=== PATIENT | female | born 1970 | race Caucasian/White ===

== ENCOUNTER 2017-01-23 10:36 | Emergency (ER) | payer BC ==
[2017-01-23] MEDS: NS 0.9% 1000 ML* 2,000 ML IV ONE (11:52)
[2017-01-23 12:07] LABS: ABS Basophils 0.1 10^3/ul (0-0.2); ABS Eosinophils 0.1 10^3/ul (0-0.6); ABS Lymphocytes 1.5 10^3/ul (1.0-4.8); ABS Monocytes 0.6 10^3/ul (0-0.8); ABS Neutrophils 6.4 10^3/ul (1.5-7.7); ABS Nucleated RBC 0 10^3/ul; Eosinophil % 1.1 % (0-6); Hematocrit 36 % (35-47); Hemoglobin 11.4 g/dl (12.0-16.0); Lymphocyte % 17.7 % (25-47); Mean Corpuscular HGB Conc 32 g/dl (31-36); Mean Corpuscular Hemoglobin 24 pg (27-31); Mean Corpuscular Volume 74 fL (80-97); Mean Platelet Volume 9 um3 (7.4-10.4); Nucleated Red Blood Cells % 0; Platelet Count 264 10^3/ul (150-450); Red Cell Distribution Width 16 % (10.5-15); White Blood Count 8.7 10^3/ul (3.5-10.8)
[2017-01-23 12:19] LABS: EGFR Non-African American 85.5 (>60)
[2017-01-23 12:22] LABS: INR 0.94 (0.77-1.02)
[2017-01-23 12:25] LABS: Urine Appearance Clear; Urine Blood 3+ (Negative); Urine Color Yellow; Urine Ketones Negative (Negative); Urine Protein 1+(30 mg/dL) (Negative); Urine Specific Gravity 1.016 (1.010-1.030); Urine Urobilinogen Negative (Negative)
[2017-01-23] MEDS ORDERED: NS 0.9% 1000 ML* 1,000 ML IV SCH (13:30)
--- NOTE | 2017-01-23 15:31 | RAD ---
INDICATION: Dysfunctional uterine bleeding COMPARISON: None TECHNIQUE: Longitudinal and transverse transvaginal scans of the pelvis were obtained. FINDINGS: Uterus: The uterus is mildly enlarged measuring 10.3 x 6.6 x 6.3 cm. There is a posterior body fibroid measuring 1.5 x 1.9 x 1.3 cm. Endometrial thickness: The endometrial thickness is measured at 1.2 cm. The endometrium is heterogeneous. Free fluid: There is no significant free fluid . Ovaries: The ovaries are normal in size. The right ovary measures 3.9 x 3.2 x 3.6 cm. The left ovary measures 2.2 x 1.9 x 1.3 cm. There is a mildly complex right ovarian cyst measuring 2.9 x 2.8 x 3.0 cm. Doppler interrogation demonstrates flow to each ovary. Other: None IMPRESSION: 1. Enlarged fibroid uterus. 2. Thickened and heterogeneous endometrium. Suggest follow-up in 2-3 menstrual cycles. 3. 3 cm mildly complex right ovarian cyst. This cyst can be reevaluated on the short-term follow-up exam.
[2017-01-23] MEDS ORDERED: CONJUGATED ESTROGENS 25 MG INJ ONE (16:00)
[2017-01-23] MEDS ORDERED: Sterile Water for Inj* 10 ML ONE (16:17)
[2017-01-23 16:55] VITALS: BP 107/65
--- NOTE | 2017-02-11 17:38 | ED ---
Luzma Light Gabriel, scribed for Simon Sands MD on 01/23/17 at 1216 . GI/ HPI - HPI Summary HPI Summary: This patient is a 46 year old F presenting to [facility] accompanied by with a chief complaint of vaginal bleeding since last night. Patient reports cramping and light headedness on standing. Patient denies hot flashes. Pt states that she has never had bleeding like this previously and that she is producing large clots of blood. She also reports some irregular spotting throughout the month although currently it is time for her normal menstrual period. - History of Current Complaint Chief Complaint: EDVaginalBleeding Stated Complaint: HEAVY BLEEDING Hx Obtained From: Patient Onset/Duration: Started Days Ago - 1, Still Present Timing: Constant Severity: Mild Current Severity: Mild Vaginal Bleeding Description: Clots Pain Intensity: 0 Associated Signs and Symptoms: Positive: Negative - hot flashes, Abdominal Pain - cramping Alleviating Factor(s): Nothing - Allergy/Home Medications Allergies/Adverse Reactions: Allergies Allergy/AdvReac Type Severity Reaction Status Date / Time No Known Allergies Allergy Verified 01/23/17 11:52 PMH/Surg Hx/FS Hx/Imm Hx Previously Healthy: Yes Endocrine/Hematology History: Denies: Hx Diabetes Cardiovascular History: Denies: Hx Atrial Fibrillation, Hx Coronary Artery Disease Respiratory History: Denies: Hx Asthma Musculoskeletal History: Denies: Hx Arthritis Opthamlomology History: Denies: Hx Cataracts EENT History: Denies: Hx Deafness Neurological History: Denies: Hx CVA, Hx Dementia, Hx Migraine Psychiatric History: Denies: Hx Anxiety - Immunization History Date of Tetanus Vaccine: UTD Date of Influenza Vaccine: NO Infectious Disease History: No Infectious Disease History: Denies: Traveled Outside the [place] in Last 30 Days - Family History Known Family History: Positive: Hypertension, Diabetes - Social History Lives: With Family Alcohol Use: None Substance Use Type: Reports: None Smoking Status (MU): Former Smoker Review of Systems Constitutional: Negative - hot flashes Positive: Abdominal Pain - cramping Positive: other - increased vaginal bleeding Neurological: Other - light headedness All Other Systems Reviewed And Are Negative: Yes Physical Exam - Summary Physical Exam Summary: Appearance: Well-appearing, Well-nourished Skin: Warm, Dry, No rash Eyes: Normal, PERRL, EOMI, sclera anicteric ENT: Normal Neck: Supple, nontender Respiratory: Clear to auscultation Cardiovascular: S1, S2, no murmur, no rub, no gallop Abdomen: Soft, nontender, no organomegaly Bowel sounds: Present Musculoskeletal: Normal, Strength/ROM Intact, no edema, pulses symmetrical Neurological: Normal, A&Ox3, cranial nerves II-XII WNL, follows commands, gait not tested, sensation intact to pin and light touch Psychiatric: affect normal, behavior appropriate, dressed appropriately, judgment intact Triage Information Reviewed: Yes Vital Signs On Initial Exam: Initial Vitals Temp Pulse Resp BP Pulse Ox 98.9 F 120 16 138/78 98 01/23/17 10:38 01/23/17 10:38 01/23/17 10:38 01/23/17 10:38 01/23/17 10:38 Vital Signs Reviewed: Yes - Lien Coma Scale Coma Scale Total: 15 Diagnostics - Vital Signs Vital Signs Temp Pulse Resp BP Pulse Ox 01/23/17 11:33 120 112/89 01/23/17 11:27 100 01/23/17 10:38 98.9 F 120 16 138/78 98 - Laboratory Lab Results: Lab Results 01/23/17 Range/Units 11:50 WBC 8.7 (3.5-10.8) 10^3/ul RBC 4.80 (4.0-5.4) 10^6/ul Hgb 11.4 L (12.0-16.0) g/dl Hct 36 (35-47) % MCV 74 L (80-97) fL MCH 24 L (27-31) pg MCHC 32 (31-36) g/dl RDW 16 H (10.5-15) % Plt Count 264 (150-450) 10^3/ul MPV 9 (7.4-10.4) um3 Neut % (Auto) 73.2 (38-83) % Lymph % (Auto) 17.7 L (25-47) % Randall % (Auto) 7.3 (1-9) % Eos % (Auto) 1.1 (0-6) % Baso % (Auto) 0.7 (0-2) % Absolute Neuts (auto) 6.4 (1.5-7.7) 10^3/ul Absolute Lymphs (auto) 1.5 (1.0-4.8) 10^3/ul Absolute Monos (auto) 0.6 (0-0.8) 10^3/ul Absolute Eos (auto) 0.1 (0-0.6) 10^3/ul Absolute Basos (auto) 0.1 (0-0.2) 10^3/ul Absolute Nucleated RBC 0 10^3/ul Nucleated RBC % 0 Result Diagrams: 01/23/17 11:50 01/23/17 11:50 Lab Statement: Any lab studies that have been ordered have been reviewed, and results considered in the medical decision making process. GIGU Course/Dx - Course Assessment/Plan: This patient is a 46 year old F presenting to [facility] accompanied by with a chief complaint of vaginal bleeding since last night. Patient reports cramping and light headedness on standing. Patient denies hot flashes. Pt states that she has never had bleeding like this previously and that she is producing large clots of blood. She also reports some irregular spotting throughout the month although currently it is time for her normal menstrual period. Test results with no significant abnormalities. In the ED course the patient was given IV fluids and Premarin. Patient will be discharged with prescription for Premarin tab and follow up from PCP. The patient is agreeable with this plan. - Diagnoses Provider Diagnoses: Ovarian cyst, Dysfunctional uterine bleeding Discharge - Discharge Plan Condition: Good Disposition: HOME Prescriptions: Conjugated Estrogens TAB* [Premarin TAB*] 1.25 mg PO DAILY 7 Days #7 tab Patient Education Materials: Dysfunctional Uterine Bleeding (ED), Ovarian Cyst (ED) Referrals: Non Staff,Doctor [Primary Care Provider] - Additional Instructions: see skin grader in the next several days The documentation as recorded by the Luzma turner Gabriel accurately reflects the service I personally performed and the decisions made by me, Simon Sands MD.
== END 2017-01-23 17:05 | disposition home or self-care (01) ==
LOC: ED 10:47
DX: N83.209 Unspecified ovarian cyst, unspecified side (principal); N93.8 Other specified abnormal uterine and vaginal bleeding; R10.9 Unspecified abdominal pain; Z87.891 Personal history of nicotine dependence
CPT/HCPCS: 36415; 76830; 80053; 81003; 81015; 82728; 83540; 83550; 84702; 85025; 85610; 85730; 86140; 86850; 86900; 86901; 87086; 96360; 99283; J1410